=== PATIENT | male | born 1960 | race Caucasian/White ===

== ENCOUNTER 2016-12-23 06:45 | Inpatient (IN) | payer SELFPAY ==
[2016-12-21 15:32] VITALS: BMI 34.9
[2016-12-23] MEDS ORDERED: MIDAZOLAM HCL 2 MG/2 ML SINGLE DOSE VIAL ONE (07:59)
[2016-12-23] MEDS ORDERED: ROCURONIUM BROMIDE 50 MG/5 ML VIAL ONE ×2 (08:09→09:22)
[2016-12-23] MEDS ORDERED: PROPOFOL 20 ML ONE (08:09)
[2016-12-23] MEDS ORDERED: ceFAZolin SODIUM 1 GM VIAL IVPB ONE (08:18)
[2016-12-23] MEDS ORDERED: LIDOCAINE HCL/PF 2% SDV 5ML VIAL ONE (08:30)
[2016-12-23] MEDS ORDERED: ceFAZolin SODIUM 1 GM VIAL ONE (08:30)
[2016-12-23] MEDS ORDERED: NEOSTIGMINE METHYLSULFATE 0.5 MG/ML - 10 ML MDV ONE (10:10)
[2016-12-23] MEDS ORDERED: GLYCOPYRROLATE 0.2 MG/1 ML VIAL ONE (10:10)
[2016-12-23] MEDS ORDERED: DEXAMETHASONE SOD PHOSPHATE 4 MG/1 ML VIAL ONE (10:10)
[2016-12-23 11:25] VITALS: TEMP 97.8
[2016-12-23] MEDS ORDERED: MEPERIDINE HCL CARPU-JECT 50 MG/1 ML DISP.SYRIN IM PRN (11:27)
[2016-12-23] MEDS ORDERED: oxyCODONE HCL 5 MG TABLET PO PRN (11:27)
--- NOTE | 2016-12-23 11:47 | OP ---
Operative Note - Note: Operative Date: 12/23/16 Pre-Operative Diagnosis: Excessive Abdominal Panniculus after Massive Weight Loss Operation: Abdominal Panniculectomy Post-Operative Diagnosis: Same as Pre-op Surgeon: Ambrosio Tao Anesthesiologist/LABOR COMMISSIONER: Scott Mccracken Anesthesia: General Estimated Blood Loss (mls): 300 Drains & Tubes with Location: 19 Fr Round GRACIA Drains x 2 Operative Report Dictated: Yes
--- NOTE | 2016-12-23 12:09 | SURG ---
Surgery Sole Leveler Note Sole Leveler: Scott Mccracken PA-C Date of Service: 12/23/16 Diagnosis: Excessive Abdominal Panniculus after Massive Weight Loss Procedure: Abdominal Panniculectomy I was present for the entirety of the operative procedure. For further detail, please refer to operative report. Visit type - Case Type Case Type: Scheduled Admission - New patient This patient is new to me today: Yes Date on this admission: 12/23/16
[2016-12-23] MEDS ORDERED: ONDANSETRON 4 MG/2 ML VIAL IVPUSH PRN (13:00)
[2016-12-23] MEDS ORDERED: oxyCODONE HCL 5 MG TABLET ONE (13:09)
[2016-12-23] MEDS ORDERED: oxyCODONE HCL 5 MG TABLET PO ONE (13:14)
[2016-12-23] MEDS ORDERED: ENOXAPARIN NA (PORCINE) 40 MG/0.4 ML DISP.SYRIN SQ SCH (14:45)
[2016-12-23] MEDS ORDERED: ENOXAPARIN NA (PORCINE) 40 MG/0.4 ML DISP.SYRIN SQ ONE ×2 (15:14→15:41)
[2016-12-23 16:57] VITALS: BP 110/70; PULSE 99
--- NOTE | 2016-12-25 19:46 | OP ---
DATE OF OPERATION: 12/23/2016 AGE: 56 SEX: Male PREOPERATIVE DIAGNOSIS: Excessive abdominal panniculus after massive weight loss. POSTOPERATIVE DIAGNOSIS: Excessive abdominal panniculus after massive weight loss. PROCEDURE PERFORMED: Abdominal panniculectomy. SURGEON: Ambrosio Tao MD RATE INSERTER: SUSAN Duque ANESTHESIA: General via endotracheal tube. BRIEF HISTORY: The patient is a 56-year-old male who is status post a [id number]-pound weight loss. The patient also has a history of issues including factor V Leiden and history of insertion of a Leoti filter. The patient now presents for abdominal panniculectomy as he has severe rashes under the overhanging pannus. DESCRIPTION OF PROCEDURE: The patient was on the operating table in the supine position, and general anesthesia was administered by the anesthesiologist. The area of the abdomen was then prepped and draped in usual sterile fashion. The patient had been seen 1 day prior to surgery and markings were made in the standing position and these markings were now used as a guide for surgery. A lower abdominal incision was made as marked using a number-10 scalpel blade and carried down into subcutaneous tissues. Large varicose veins were present, and these were individually identified and doubly ligated using Vicryl ties. Incision was carried down using electrocautery to the level of the abdominal wall fascia, and dissection continued up in this plane. The umbilicus was released with a circumferential incision about the umbilicus as the lower abdominal flap was divided. Dissection continued up to the level of the costal margins, and the patient was moved into the sitting position. The excessive tissue was removed, and closure was performed. Deep tissues were closed with No. 2-0 Ethibond sutures, No. 3-0 inverted buried Biosyn sutures, and No. 4-0 inverted buried Biosyn sutures. A deep dermal layer of 4-0 V-Loc 90 was used continuously for skin closure. A circular incision was made at the level of the iliac crests for the umbilicus which was then delivered through this incision and inset. Umbilicus was inset in layered fashion. Deep tissues were closed with 4-0 Biosyn suture in interrupted buried fashion, and the skin was closed with No. 4-0 and 5-0 nylon suture in simple interrupted fashion. The wounds were future secured with Steri-Strips, and sterile dressings were applied and secured with an abdominal binder. SCDs were used during the procedure, and the patient will continue with intradermal anticoagulants postoperatively until his Coumadin is restarted. The patient was then awoken from anesthesia and taken from the operating room to the recovery room in satisfactory condition, having tolerated the procedure well. Dee Dee SINHA/[id number]
--- NOTE | 2016-12-27 15:05 | PATH ---
Surgical Pathology Report Patient Name: KANDICE PRINCE [facility]. Rec. #: [id number] /Age/Gender: 1960 (Age: 56) / M Account: [id number] Location: [facility] Taken: 12/23/2016 Received: 12/23/2016 Reported: 12/27/2016 Physicians: Ambrosio Tao M.D. Specimen(s) Received A: ABDOMNINAL PANNUS B: ABDOMINAL PANNUS Clinical History Excessive abdominal pannus Final Diagnosis A. ABDOMINAL PANNUS, ABDOMINOPLASTY: GROSSLY UNREMARKABLE SKIN AND SUBCUTANEOUS FATTY TISSUE (GROSS EXAM). B. ABDOMINAL PANNUS, ABDOMINOPLASTY: GROSSLY UNREMARKABLE SKIN AND SUBCUTANEOUS FATTY TISSUE (GROSS EXAM). Electronically Signed Aj Mullen M.D. Gross Description A. Received in formalin labeled "abdominal pannus" is a 1294 g, 25.0 x 21.0 x 5.0 cm collins, triangular, unoriented portion of skin with underlying soft tissue. The epidermal surface is unremarkable. Sectioning reveals yellow, lobulated adipose tissue. No masses are identified. No sections are submitted, gross only. B. Received in formalin labeled "abdominal pannus" is a 1310 g, 27.0 x 21.0 x 5.0 cm collins, triangular, unoriented portion of skin with underlying soft tissue. The epidermal surface is unremarkable. Sectioning reveals yellow, lobulated adipose tissue. No masses are identified. No sections are submitted, gross only. 12/24/2016 saudi12/24/2016
== END 2016-12-23 17:00 | disposition home or self-care (01) | DRG 364 ==
LOC: JASU-SURG 06:45 → JSAMEDAYSX 11:31
PROVIDERS: ADMIT Plastic Surgery; ATTEND Plastic Surgery
PROC: 0W0F0ZZ Alteration of Abdominal Wall, Open Approach (ICD-10-PCS; principal; 2016-12-23 08:00)
DX: E65 Localized adiposity (principal); D68.2 Hereditary deficiency of other clotting factors; I10 Essential (primary) hypertension; E78.00 Pure hypercholesterolemia, unspecified; I87.8 Other specified disorders of veins; F41.9 Anxiety disorder, unspecified
CPT/HCPCS: 36415; 85610; 88300-TC; 94760